=== PATIENT | female | born 1970 | race Caucasian/White ===

== ENCOUNTER 2020-04-10 14:47 | Emergency (ER) | payer MEDICARE, MEDICAID ==
[~2020-04-10] VITALS: Ht 160 cm; Wt 84.3 kg
--- NOTE | 2020-04-10 15:53 | RAD ---
KNEE RIGHT 3V History: Pain. Reason: fall / Spl. Instructions: / History: Technique: 3 views right knee. Comparison: None. Findings: Normal alignment. No fracture. Mild medial and patellofemoral compartment DJD. Small knee joint effusion. Impression: 1. No acute osseous abnormality. 2. Small knee joint effusion. 3. Mild knee DJD. Electronically signed by: Constantino Leblanc DO (04/10/2020 3:50 PM) [facility]
--- NOTE | 2020-04-10 15:57 | RAD ---
ANKLE RIGHT 3V History: Pain. Reason: fall / Spl. Instructions: / History: Technique: 3 views right ankle. Comparison: None. Findings: Acute fifth metatarsal base minimally displaced fracture. There is adjacent soft tissue swelling. Symmetric ankle mortise. No additional fracture. Impression: 1. Acute fifth metatarsal base minimally displaced fracture. Electronically signed by: Constantino Leblanc DO (04/10/2020 3:54 PM) [facility]
--- NOTE | 2020-04-10 16:02 | PHYS DOC ---
Past History Past Medical History: Other Additional Past Medical Histor: PTSD, JOSSELIN-DANLOS Past Surgical History: Cancer Surgery, Cholecystectomy, , Hysterectomy, Knee Replacement Alcohol Use: Rarely General Adult EDM: Chief Complaint: LOWER EXT PAIN HPI: HPI: 50-year-old female presents with right lateral foot and ankle pain. The patient was walking in her backyard on Friday when she rolled her ankle medially and fell to the ground. She heard a pop, but she thought she just broke her sandal. She continue to do regular activities through the weekend including walking on it. She now has quite a bit of pain. She also has some mild swelling and pain in the knee, but does not think this is significant. There is significant bruising down into her toes from digits 2 through 5. Her most severe pain is the right lateral foot. She has no other injury or complaints at this time. Review of Systems: Review of Systems: Constitutional: Denies fever or chills Eyes: Denies change in visual acuity HENT: Denies nasal congestion or sore throat Respiratory: Denies cough or shortness of breath Cardiovascular: Denies chest pain or edema GI: Denies abdominal pain, nausea, vomiting, bloody stools or diarrhea : Denies dysuria Musculoskeletal: Pain of the right ankle, foot, and knee Integument: Denies rash Neurologic: Denies headache, focal weakness or sensory changes Endocrine: Denies polyuria or polydipsia Lymphatic: Denies swollen glands Psychiatric: Denies depression or anxiety Heart Score: Risk Factors: Risk Factors: DM, Current or recent (<one month) smoker, HTN, HLP, family history of CAD, obesity. Risk Scores: Score 0 - 3: 2.5% MACE over next 6 weeks - Discharge Home Score 4 - 6: 20.3% MACE over next 6 weeks - Admit for Clinical Observation Score 7 - 10: 72.7% MACE over next 6 weeks - Early Invasive Strategies Allergies: Allergies: Allergies Coded Allergies Type Severity Reaction Last Updated Verified ritodrine Allergy Unknown 04/10/20 Yes Physical Exam: PE: Constitutional: Well developed, well nourished, no acute distress, non-toxic appearance. [] HENT: Normocephalic, atraumatic, bilateral external ears normal, oropharynx moist, no oral exudates, nose normal. [] Eyes: PERRLA, EOMI, conjunctiva normal, no discharge. [] Neck: Normal range of motion, no tenderness, supple, no stridor. [] Cardiovascular:Heart rate regular rhythm, no murmur [] Lungs & Thorax: Bilateral breath sounds clear to auscultation [] Abdomen: Bowel sounds normal, soft, no tenderness, no masses, no pulsatile masses. [] Skin: Warm, dry, no erythema, no rash. [] Back: No tenderness, no CVA tenderness. [] Extremities: Mild swelling of the right knee, ecchymosis of the toes of the right foot, swelling of the lateral foot and lateral ankle. No obvious deformity. Tenderness of the foot and ankle palpation. Range of motion deferred due to pain. Cap refill normal. [] Neurologic: Alert and oriented X 3, normal motor function, normal sensory function, no focal deficits noted. [] Psychologic: Affect normal, judgement normal, mood normal. [] Current Patient Data: Vital Signs: Vital Signs Date Time Temp Pulse Resp B/P (MAP) Pulse Ox O2 Delivery O2 Flow Rate FiO2 04/10/20 15:00 98.0 83 20 134/71 (92) 99 Room Air EKG: EKG: [] Radiology/Procedures: Radiology/Procedures: [] Impressions: ANKLE RIGHT 3V History: Pain. Reason: fall / Spl. Instructions: / History: Technique: 3 views right ankle. Comparison: None. Findings: Acute fifth metatarsal base minimally displaced fracture. There is adjacent soft tissue swelling. Symmetric ankle mortise. No additional fracture. Impression: 1. Acute fifth metatarsal base minimally displaced fracture. Electronically signed by: Constantino Leblanc DO (04/10/2020 3:54 PM) [facility] DICTATED AND SIGNED BY: CONSTANTINO LEBLANC DO DATE: 04/10/20 1554 CC: HERB HUDSON DO; PCP,NO ~ KNEE RIGHT 3V History: Pain. Reason: fall / Spl. Instructions: / History: Technique: 3 views right knee. Comparison: None. Findings: Normal alignment. No fracture. Mild medial and patellofemoral compartment DJD. Small knee joint effusion. Impression: 1. No acute osseous abnormality. 2. Small knee joint effusion. 3. Mild knee DJD. Electronically signed by: Constantino Leblanc DO (04/10/2020 3:50 PM) [facility] DICTATED AND SIGNED BY: CONSTANTINO LEBLANC DO DATE: 04/10/20 1550 CC: HERB HUDSON DO; PCP,NO ~ EXAM: Right foot, 3 views. HISTORY: Pain and swelling. COMPARISON: None. FINDINGS: 3 views of the right foot are obtained. There is a minimally displaced fracture the base of the fifth metatarsal. No foreign body is seen. IMPRESSION: Minimally displaced fracture the base of the fifth metatarsal. Electronically signed by: Yolanda Duffy MD (04/10/2020 4:04 PM) [facility] DICTATED AND SIGNED BY: YOLANDA DUFFY MD DATE: 04/10/20 1604 CC: HERB HUDSON DO; PCP,NO ~ Course & Med Decision Making: Course & Med Decision Making Pertinent Labs and Imaging studies reviewed. (See chart for details) The patient has a minimally displaced fracture at the base of the fifth meta tarsal. No other fracture seen. We will place her in a splint and crutches. I have advised that she follow-up with orthopedics to determine surgery versus cast. I have given her 2 mg of morphine IM for pain as well as 4 mg of Zofran ODT. I will discharge her with a prescription of [place]. She is stable for discharge at this time. [] Clyde Disclaimer: Clyde Disclaimer: This electronic medical record was generated, in whole or in part, using a voice recognition dictation system. Departure Departure: Impression: Primary Impression: Fracture of fifth metatarsal bone of right foot Qualified Codes: S92.351A - Displaced fracture of fifth metatarsal bone, right foot, initial encounter for closed fracture Disposition: 01 HOME/RESIDENCE PRIOR TO ADM Condition: STABLE Referrals: PCP,NO (PCP) Patient Instructions: Foot Fracture Additional Instructions: Please call the [facility] orthopedic group for follow-up of your fracture. The phone number is [phone]. You should wear your splint and use crutches until you are seen by orthopedics. Scripts Hydrocodone Bit/Acetaminophen (NORCO 5-325 TABLET) 1 Each Tablet 1 TAB PO PRN Q6HRS PRN for PAIN, #14 TAB 0 Refills Prov: HERB HUDSON DO 04/10/20 Justification of Admission: Justification of Admission: Justification of Admission Dx: N/A HERB HUDSON DO Apr 10, 2020 16:02
--- NOTE | 2020-04-10 16:08 | RAD ---
EXAM: Right foot, 3 views. HISTORY: Pain and swelling. COMPARISON: None. FINDINGS: 3 views of the right foot are obtained. There is a minimally displaced fracture the base of the fifth metatarsal. No foreign body is seen. IMPRESSION: Minimally displaced fracture the base of the fifth metatarsal. Electronically signed by: Yolanda Bahena MD (04/10/2020 4:04 PM) [facility]
[2020-04-10] MEDS ORDERED: MORPHINE SULFATE 2 MG/ML DISP.SYRIN. IM ONE (16:15)
[2020-04-10] MEDS ORDERED: ONDANSETRON ODT 4 MG TAB.RAPDIS PO ONE (16:15)
[2020-04-10] MEDS ORDERED: HYDR-3165 PO (16:17)
[2020-04-10 16:35] VITALS: BP 131/61
== END 2020-04-10 16:42 | disposition home or self-care (01) ==
LOC: ER 14:47
DX: S92.351A Displaced fracture of fifth metatarsal bone, right foot, initial encounter for closed fracture (principal); Z88.8 Allergy status to other drugs, medicaments and biological substances; X50.9XXA Other and unspecified overexertion or strenuous movements or postures, initial encounter; Y93.01 Activity, walking, marching and hiking; Y92.89 Other specified places as the place of occurrence of the external cause; Y99.8 Other external cause status
CPT/HCPCS: 29515; 73562; 73610; 73630; 96372; 99284; J2270; Q0162